=== PATIENT | female | born 2005 | race African-American/Black ===

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

== ENCOUNTER 2024-08-06 13:49 | Emergency (ER) | payer OTHER ==
[2024-08-06 14:05] VITALS: BP 113/72; PULSE 91; RESP 20; TEMP 98.3; BMI 23.9
[2024-08-06] MEDS ORDERED: ACETAMINOPHEN 325 MG TABLET (FP) ONE (14:54)
[2024-08-06] MEDS ORDERED: IBUPROFEN 400 MG TABLET (FP) PO ONE (14:55)
[2024-08-06] MEDS: ACETAMINOPHEN 325 MG TABLET (FP) PO ONE (15:00)
[2024-08-06] MEDS: IBUPROFEN 400 MG TABLET (FP) PO ONE (15:01)
== END 2024-08-06 17:10 | disposition home or self-care (01) ==
LOC: JER 13:49
DX: R07.89 Other chest pain (principal)
CPT/HCPCS: 71046-TC-FY; 93005; 93010; 99284-25